=== PATIENT | male | born 1960 | race Caucasian/White ===

== ENCOUNTER 2017-08-30 21:44 | Emergency (ER) | payer OTHER ==
[~2017-08-30] VITALS: Ht 175.3 cm; Wt 98.0 kg
[2017-08-30 21:51] VITALS: Ht 175.3 cm; Wt 98.0 kg
[2017-08-30 23:13] LABS: BASOPHIL % 0.5 % (0-2); CALCIUM 8.4 mg/dL (8.5-10.1); CARBON DIOXIDE 27.6 mmol/L (21-32); CHLORIDE SERUM 107 mmol/L (98-107); CREATININE SERUM 0.9 mg/dL (0.7-1.3); GFR1 > 60 mL/min; GLUCOSE SERUM 81 mg/dL (74-106); PLATELET COUNT 233 x10^3mcL (130-400); POTASSIUM SERUM 3.8 mmol/L (3.5-5.1); RED CELL DISTRIBUTION WIDTH 13.5 % (11.5-14.5); SODIUM SERUM 143 mmol/L (136-145)
[2017-08-30 23:18] LABS: ALBUMIN 3.6 g/dL (3.4-5.0); ALKALINE PHOSPHATASE 67 U/L (46-116); ALT/SGPT 39 U/L (16-63); AST/SGOT 21 U/L (15-37); BILIRUBIN TOTAL 0.3 mg/dL (0.20-1.00); LIPASE 106 IU/L (73-393); TOTAL PROTEIN, SERUM 7.3 g/dL (6.4-8.2)
[2017-08-31 02:47] VITALS: BP 149/105
== END 2017-08-31 02:46 | disposition home or self-care (01) ==
LOC: ED 21:44
PROVIDERS: Emergency Medicine
DX: R00.2 Palpitations (principal); R51 Headache; I10 Essential (primary) hypertension
CPT/HCPCS: J0500; J3010